=== PATIENT | female | born 1955 | race Caucasian/White ===

== ENCOUNTER → 2018-02-28 | Outpatient (CLI) | payer OTHER ==
[~2018-02-28] MED LIST: ATARAX25 MG PO; AUGMENTIN 875875 MG PO; CELEXA20 MG PO; CLARITIN10 MG PO; PREDNICOT20 MG PO; XANAX XR1 MG PO
== END | disposition home or self-care (01) ==
LOC: CARD 10:26
DX: R94.31 Abnormal electrocardiogram [ECG] [EKG] (principal)